=== PATIENT | female | born 1985 | race Caucasian/White ===

== ENCOUNTER → 2024-03-23 09:40 | Outpatient (REF) | payer BC, SELFPAY | LOC: RAD 09:40 | PROVIDERS: ATTENDING PHYSICIAN Family Medicine | DX: R10.31 Right lower quadrant pain (principal) | CPT/HCPCS: 74177; Q9967 ==

== ENCOUNTER → 2024-06-10 11:18 | Outpatient (REF) | payer BC, SELFPAY | LOC: MRI 3T 11:18 | PROVIDERS: ATTENDING PHYSICIAN Obstetrics & Gynecology Gynecology; FAMILY PHYSICIAN Physician Assistant | DX: D21.9 Benign neoplasm of connective and other soft tissue, unspecified (principal); N83.209 Unspecified ovarian cyst, unspecified side | CPT/HCPCS: 72197; A9575 ==